=== PATIENT | female | born 2000 | race Caucasian/White ===

== ENCOUNTER → 2024-10-24 | Emergency (ER) | payer OTHER ==
[~2024-10-24] VITALS: Ht 172.7 cm; Wt 54.4 kg
[~2024-10-24] MED LIST: ONDA4TAB5 PO; PHEN16.234 PO
[2024-10-24 10:59] VITALS: TEMP 98.2
[2024-10-24 12:15] VITALS: BP 102/55
[2024-10-24 12:45] VITALS: O2SAT 100
== END | disposition home or self-care (01) ==
LOC: ER 10:57
DX: S06.0XAA Concussion with loss of consciousness status unknown, initial encounter (principal); R51.9 Headache, unspecified; Z79.899 Other long term (current) drug therapy; W18.39XA Other fall on same level, initial encounter; Y93.89 Activity, other specified; Y92.89 Other specified places as the place of occurrence of the external cause; Y99.8 Other external cause status
CPT/HCPCS: 99284; 70450; A4223